=== PATIENT | male | born 1995 ===

== ENCOUNTER 2018-08-14 17:24 | Emergency (ER) | payer MEDICAID ==
[2018-08-14 17:47] VITALS: BP 101/66; PULSE 89; RESP 17; TEMP 98.7; O2SAT 97
--- NOTE | 2018-08-14 18:23 | C.PDOC ---
History Of Present Illness 23 yo male come in for evaluation of Left sided midback pain gradually developed for past 2 days. Pt reports, " constantly doing heavy lifting, not sure if pulled muscle". Pt reports, pain is localized over left sided midback, worse with movement. Otherwise, pt denies fever, chills, CP, SOB, dyspnea, palpitation, abd. pain, V/D, UTI sx, saddle anesthesia, incontinence, denies weakness to B/L uEs and LEs. Ambulate to Ed for evaluation, appears in pain. Time Seen by Provider: 08/14/18 17:59 Chief Complaint (Nursing): Back Pain History Per: Patient Onset/Duration Of Symptoms: Gradual Past Medical History Reviewed: Historical Data, Nursing Documentation, Vital Signs Vital Signs: Last Vital Signs Temp 98.7 F 08/14/18 17:43 Pulse 89 08/14/18 17:43 Resp 17 08/14/18 17:43 BP 101/66 08/14/18 17:43 Pulse Ox 97 08/14/18 17:43 - Medical History PMH: No Chronic Diseases Family History: States: No Known Family Hx - Social History Hx Tobacco Use: No Hx Alcohol Use: No Hx Substance Use: No - Immunization History Hx Tetanus Toxoid Vaccination: No Hx Influenza Vaccination: No Hx Pneumococcal Vaccination: No Review Of Systems Except As Marked, All Systems Reviewed And Found Negative. Constitutional: Negative for: Fever, Chills ENT: Negative for: Ear Discharge, Nose Discharge, Nose Congestion, Throat Pain, Throat Swelling Cardiovascular: Negative for: Chest Pain, Palpitations, Light Headedness Respiratory: Negative for: Cough, Shortness of Breath, Wheezing Gastrointestinal: Negative for: Nausea, Vomiting, Abdominal Pain, Diarrhea Genitourinary: Negative for: Dysuria, Frequency, Incontinence Musculoskeletal: Positive for: Back Pain. Negative for: Neck Pain Skin: Negative for: Rash Neurological: Negative for: Weakness, Numbness, Altered Mental Status, Headache, Dizziness Physical Exam - Physical Exam Appears: Well, Non-toxic, No Acute Distress Skin: Normal Color, Warm, Dry, No Rash, No Ecchymosis Head: Normacephalic Eye(s): bilateral: PERRL Nose: No Flaring, No Discharge Oral Mucosa: Moist Throat: No Drooling Neck: Normal ROM, Trachea Midline, No Midline Cervical Tenderness, No Paracervical Tenderness, No Step Off Deformity, Supple Chest: Symmetrical, No Deformity, No Tenderness, No Ecchymosis, No Subcutaneous Emphysema Cardiovascular: Rhythm Regular, No Murmur, No JVD Respiratory: No Decreased Breath Sounds, No Accessory Muscle Use, No Stridor, No Wheezing Gastrointestinal/Abdominal: Soft, No Tenderness Back: No CVA Tenderness, No Vertebral Tenderness, No Paraspinal Tenderness, Other (Left periscapular point- tenderness. No skin changes, no palpable deformity) Extremity: Normal ROM, No Deformity, No Swelling Neurological/Psych: Oriented x3, Normal Speech, Normal Motor, Normal Sensation, Normal Reflexes ED Course And Treatment O2 Sat by Pulse Oximetry: 97 Pulse Ox Interpretation: Normal - Radiology CXR: Interpreted by Me, Viewed By Me CXR Interpretation: Yes: No Acute Disease. No: Pnemothorax Progress Note: On re-eval, pt is afebrile, hemodynamicaly stable. Non-toxic. Ambulatory in ED with stable gait. PulseOx 97% RA. ENT: No acute findings. neck: SUpple, (-) midline tenderness. Lungs: CTA B/L, BS equal B/L. CVS: (+)S1S2, reg, (-) murmur. Back: (-) CVA tenderness. Neurologicaly intact. CXR review and appears normal. Pt has clinical findings c/w Left sided upper back muscle strain. Pt advised. rfef. to F/u with PMD in 2-3 days for re-eval. return if any new changes. Disposition Counseled Patient/Family Regarding: Studies Performed, Diagnosis, Need For Followup, Rx Given - Disposition Referrals: Kaley Noguera MD [Medical Doctor] - Disposition: HOME/ ROUTINE Disposition Time: 18:52 Condition: STABLE Additional Instructions: LIght duty, avoid heavy lifting for 1 week take pain medication as prescribed Follow up with PMD in 2-3 days for re-evaluation. return to ED if any worsening or new changes. Prescriptions: Ibuprofen [Motrin Tab] 600 mg PO BID #14 tab Methocarbamol [Robaxin] 500 mg PO TID #14 tab traMADol [Ultram] 50 mg PO TID #7 tab Instructions: Muscle Strain Forms: [facility] ([facility]), Work Excuse - Clinical Impression Clinical Impression: Thoracic back sprain
--- NOTE | 2018-08-15 08:37 | RAD ---
Date of service: 08/14/2018 HISTORY: Cough COMPARISON: Calcified granuloma at right lung base. No infiltrate. TECHNIQUE: Chest PA and lateral FINDINGS: LUNGS: No active pulmonary disease. PLEURA: No significant pleural effusion identified. No pneumothorax apparent. CARDIOVASCULAR: Normal. OSSEOUS STRUCTURES: No significant abnormalities. VISUALIZED UPPER ABDOMEN: Normal. OTHER FINDINGS: None. IMPRESSION: No active disease.
== END 2018-08-14 19:15 | disposition home or self-care (01) ==
LOC: C.ER 17:24
DX: S23.3XXA Sprain of ligaments of thoracic spine, initial encounter (principal); X50.9XXA Other and unspecified overexertion or strenuous movements or postures, initial encounter